=== PATIENT | female | born 1930 | race Hispanic/Latino ===

== ENCOUNTER 2016-10-26 13:27 | Inpatient (IN) | payer MEDICARE, OTHER ==
[2016-10-26 14:33] LABS: Hematocrit 31.1 % (30.3-42.9); Hemoglobin 10.3 gm/dl (10.1-14.3); Mean Corpuscular HGB Conc 33 % (30-34); Mean Corpuscular Hemoglobin 33 pg (28-32); Mean Corpuscular Volume 100 fl (79-97); Platelet Count 236 K/mm3 (140-440); Red Blood Count 3.11 M/mm3 (3.65-5.03); Red Cell Distribution Width 15.4 % (13.2-15.2); White Blood Count 5.3 K/mm3 (4.5-11.0)
[2016-10-26 14:36] LABS: BUN/Creatinine Ratio 25.55; Calcium 9.6 mg/dL (8.4-10.2)
[2016-10-26 14:37] LABS: Chloride 102.6 mmol/L (98-107)
[2016-10-26 14:58] LABS: Bacteria,Urine 2+ /HPF (Negative); Bilirubin,Urine NEG (Negative); Blood,Urine NEG (Negative); Ketones,Urine NEG (Negative); Leukocyte Esterase,Urine LG (Negative); Mucus,Urine FEW /HPF; Nitrite,Urine POS (Negative); Urobilinogen,Urine < 2.0 mg/dL (<2.0)
--- NOTE | 2016-10-26 15:15 | Cat Scan Report ---
FINAL REPORT PROCEDURE: CT HEAD/BRAIN WO CON TECHNIQUE: Computerized tomography of the head was performed without contrast material. HISTORY: syncope COMPARISON: Noncontrast head CT 06/19/2015 FINDINGS: Stable moderate involutional changes and deep white matter microvascular ischemic change is present as well as old bilateral basal ganglia lacunar infarcts. No CT evident acute infarction is present. There is no intra or extra-axial hemorrhage. There is no mass effect or shift of midline structures. The skull base and calvarium are intact. The partially visualized paranasal sinuses, mastoid air cells and middle ears are clear. IMPRESSION: No CT evident acute intracranial process. Stable involutional changes, small vessel disease and old bilateral basal ganglia lacunar infarcts.
[2016-10-26] MEDS ORDERED: ROCEPHIN/NS 1 GM/50 ML 1 GM/50 ML BAG IV ONE (15:16)
--- NOTE | 2016-10-26 15:31 | Emergency Department Report ---
HPI - General Chief Complaint: Syncope Time Seen by Provider: 10/26/16 14:02 - HPI HPI: Chief complaint: Syncope HPI: Patient is an 86-year-old female with a history of dementia, arthritis, CVA , diabetes, hypertension who was at the [facility] and had a syncopal episode. Patient was sitting in the chair and it is questionable whether she fell out onto the ground the daughter states she does not believe that happened. There is no obvious lesion where the patient was injured falling. Patient was brought in by EMS state they noted a first-degree heart block and heart rate in the 50s so gave her some atropine. Patient remained somewhat altered after arrival here but now according to her daughter she is back to her baseline. Patient herself cannot contribute to the history secondary to her dementia. Mode of arrival: EMS Source:family member Began: Occurred prior to admission Duration: Several minutes Context: She has had syncopal episodes in the past. Daughter does not wish her to have a pacemaker if it were to be needed. Quality: Unable to assess Severity: Unable to assess Improved with: Unable to assess Worsened with: Unable to assess Associated signs and symptoms: Unable to assess. Daughter states is far she knows she's had no nausea vomiting diarrhea fever cough or cold. ED Past Medical Hx - Past Medical History Previous Medical History?: Yes Hx Hypertension: Yes Hx CVA: Yes (2006) Hx Diabetes: Yes Hx Arthritis: Yes Hx Psychiatric Treatment: Yes (dementia) Hx Dementia: Yes (senile) Additional medical history: eosinophilic esophagitis, anemia, hemorrhoids, osteoporosis, stress incontinence, - Surgical History Additional Surgical History: Bladder; Cateract surgery s3, D&C, Vericose Veins - Social History Smoking Status: Former Smoker Substance Use Type: None Other Social History: Patient lives in assisted living - Medications Home Medications: Home Medications Medication Instructions Recorded Confirmed Last Taken Type sitaGLIPtin [Januvia] 50 mg PO DAILY #30 tablet 08/21/13 10/26/16 06/19/15 Rx Aspirin [Aspirin BABY CHEW TAB] 81 mg PO QHS 12/19/14 10/26/16 06/19/15 History Cholecalciferol (Vitamin D3) 5,000 unit PO QDAY 12/19/14 10/26/16 06/19/15 History [Vitamin D3] Memantine HCl [Namenda Xr] 28 mg PO DAILY 12/19/14 10/26/16 06/19/15 History Quetiapine Fumarate [SEROquel] 50 mg PO QHS 12/19/14 10/26/16 06/19/15 History Ranitidine HCl [Ranitidine 150mg 150 mg PO BID 12/19/14 10/26/16 06/19/15 History Cap] Rivastigmine [Exelon] 13.3 mg TD QHS 12/19/14 10/26/16 06/19/15 History Cranberry Extract [Theracran Hp 50 mg PO DAILY 02/24/15 10/26/16 06/19/15 History For Kids] Krill/Om-3/Dha/Epa/Phospho/Ast 1 each PO DAILY 02/24/15 10/26/16 06/19/15 History [Megared [place]-3 Krill Oil Sfgl] Multivitamin [Animal Shapes] 1 each PO DAILY 02/24/15 10/26/16 06/19/15 History Polyethylene Glycol 3350 [Miralax 17 gm PO QAM 02/24/15 10/26/16 06/19/15 History 3350] Vit A/Vit C/Vit E/Zinc/Copper 1 each PO BID 02/24/15 10/26/16 06/19/15 History [Preservision Areds Softgel] Sennosides [Senna Lax] 17.2 mg PO QHS 06/19/15 10/26/16 06/19/15 History Trimethoprim 100 mg PO QDAY 06/19/15 06/19/15 06/19/15 History ED Review of Systems ROS: Stated complaint: SYNCOPE Other details as noted in HPI Comment: Unobtainable due to pts medical conditions (secondary to dementia) Physical Exam - Physical Exam Vital Signs: Vital Signs 10/26/16 10/26/16 13:29 14:26 Temperature 97 F L Pulse Rate 64 Respiratory 16 Rate Blood Pressure 139/56 O2 Sat by Pulse 98 98 Oximetry Physical Exam: GENERAL: The patient is a well-developed well-nourished pleasant elderly white female in no acute distress. HEENT: Normocephalic. Atraumatic. Extraocular motions are intact. Patient has moist mucous membranes. NECK: Supple. No meningitic signs are noted. There is no adenopathy noted. CHEST/LUNGS: Clear to auscultation. There is no respiratory distress noted. HEART/CARDIOVASCULAR: Regular. There is no tachycardia. There is no gallop rub or murmur. ABDOMEN: Abdomen is soft, nontender. Patient has normal bowel sounds. There is no abdominal distention. SKIN: There is no rash. There is no edema. There is no diaphoresis. NEURO: The patient is awake, alert, and oriented. The patient is cooperative. The patient moves all extremities. Patient nods yes to every question and put to her MUSCULOSKELETAL: There is no tenderness or deformity. There is no limitation range of motion. There is no evidence of acute injury. ED Course Vital Signs 10/26/16 10/26/16 13:29 14:26 Temperature 97 F L Pulse Rate 64 Respiratory 16 Rate Blood Pressure 139/56 O2 Sat by Pulse 98 98 Oximetry - Reevaluation(s) Reevaluation #1: 10/26/16 Discussed with patient's daughter who states the patient is a DO NOT RESUSCITATE. Discussed with Dr. Dey who happens to be the patient's primary care doctor as well as the admitting hospitalist and he will admit her to the hospital. Patient was cultured and given 1 g of IV Rocephin for her urinary tract infection. ED Medical Decision Making - Lab Data Result diagrams: 10/26/16 14:04 10/26/16 14:04 Laboratory Tests 10/26/16 10/26/16 14:04 14:06 Troponin T < 0.010 Urine Nitrite Pos Ur Leukocyte Esterase Lg Urine WBC (Auto) 181.0 H Urine RBC (Auto) 13.0 U Epithel Cells (Auto) 6.0 Urine Bacteria (Auto) 2+ Urine WBC Clumps 2+ Hyaline Casts 24 - EKG Data -: EKG Interpreted by Nc EKG shows normal: sinus rhythm (with first-degree AV block60) - EKG Data When compared to previous EKG there are: previous EKG unavailable Interpretation: nonspecific ST-T wave oliva - Radiology Data Radiology results: report reviewed (CT head shows no acute process.) Critical care attestation.: If time is entered above; I have spent that time in minutes in the direct care of this critically ill patient, excluding procedure time. ED Disposition Clinical Impression: Urinary tract infection Qualifiers: Urinary tract infection type: acute pyelonephritis Qualified Code(s): N10 - Acute pyelonephritis Syncope Qualifiers: Syncope type: unspecified Qualified Code(s): R55 - Syncope and collapse Disposition: OP ADMITTED IP TO THIS HOSP Is pt being admited?: Yes Does the pt Need Aspirin: Yes Condition: Fair Time of Disposition: 15:32 (admit to the hospitalist)
[2016-10-26] MEDS ORDERED: ASPIRIN PO ONE (15:57)
[2016-10-26] MEDS ORDERED: ZOFRAN PO PRN (16:19)
[2016-10-26] MEDS ORDERED: DULCOLAX PR PRN (16:21)
[2016-10-26] MEDS ORDERED: NORCO 5/325 PO PRN (16:21)
[2016-10-26] MEDS ORDERED: TYLENOL PO PRN (16:21)
[2016-10-26] MEDS ORDERED: ZOFRAN IV PRN (16:21)
[2016-10-26] MEDS ORDERED: MILK OF MAGNESIA PO PRN (16:21)
--- NOTE | 2016-10-26 16:33 | History and Physical Report ---
History of Present Illness Date of examination: 10/26/16 Date of admission: 10/26/2016 Chief complaint: syncope History of present illness: Patient 86-year-old female with hypertension advance dementia diabetes presents after an episode of syncope. Patient was at the [facility] and is still not and had what appeared to be a syncopal episode. Patient did not hit her head was at the [facility]'s eat. Patient brought in after workup in ED was found to have first degree AV block. This was not new family had addressed this before. Patient has advanced dementia does not want any defibrillator or any invasive treatment at all. Patient etiology for syncope however was UTI and dehydration and we'll admit for urinary tract infection and dehydration to treat this. Past History Past Medical History: arrhythmia, diabetes, GERD, hypertension. denies: acute [place], atrial fib, anemia, arthritis, CAD, cancer, COPD, dialysis, DVT, ESRD, heart failure, hepatitis, HIV/AIDS, hyperthyroidism, hyperlipidemia, hypothyroidism, liver disease, PVD, pulmonary embolism, renal failure, seizures , stroke, sarcoidosis Past Surgical History: Other (bladder surgery) Social history: lives with family, AND/DNR-allow natural . denies: smoking , alcohol abuse, prescription drug abuse, IV drug use, full code Family history: no significant family history Medications and Allergies Allergies Allergy/AdvReac Type Severity Reaction Status Date / Time meperidine HCl [From Demerol] Allergy Rash Verified 08/19/13 09:33 nitrofurantoin Allergy Angioedema Verified 02/24/15 09:26 [From Macrobid] nitrofurantoin Allergy Angioedema Verified 02/24/15 09:26 macrocrystalline [From Macrobid] pineapple [Pineapple] Allergy Rash Verified 08/19/13 09:33 metformin AdvReac Diarrhea Verified 02/24/15 09:26 Home Medications Medication Instructions Recorded Confirmed Last Taken Type amLODIPine [Norvasc] 5 mg PO DAILY 08/19/13 06/19/15 06/19/15 History sitaGLIPtin [Januvia] 50 mg PO DAILY #30 tablet 08/21/13 06/19/15 06/19/15 Rx Aspirin [Aspirin BABY CHEW TAB] 81 mg PO QDAY 12/19/14 06/19/15 06/19/15 History Cholecalciferol (Vitamin D3) 5,000 unit PO QDAY 12/19/14 06/19/15 06/19/15 History [Vitamin D3] Lisinopril [Zestril] 2.5 mg PO QDAY 12/19/14 06/19/15 06/19/15 History Memantine HCl [Namenda Xr] 28 mg PO DAILY 12/19/14 06/19/15 06/19/15 History Quetiapine Fumarate [SEROquel] 25 mg PO BID 12/19/14 06/19/15 06/19/15 History Quetiapine Fumarate [SEROquel] 100 mg PO QHS 12/19/14 06/19/15 06/19/15 History Ranitidine HCl [Ranitidine 150mg 150 mg PO BID 12/19/14 06/19/15 06/19/15 History Cap] Rivastigmine [Exelon] 13.3 mg TD QHS 12/19/14 06/19/15 06/19/15 History Cranberry Extract [Theracran Hp 50 mg PO DAILY 02/24/15 06/19/15 06/19/15 History For Kids] Lenora Root [Lenora] 250 mg PO DAILY 02/24/15 06/19/15 06/19/15 History Krill/Om-3/Dha/Epa/Phospho/Ast 1 each PO DAILY 02/24/15 06/19/15 06/19/15 History [Megared [place]-3 Krill Oil Sfgl] Multivitamin [Animal Shapes] 1 each PO DAILY 02/24/15 06/19/15 06/19/15 History Polyethylene Glycol 3350 [Miralax 17 gm PO QAM 02/24/15 06/19/15 06/19/15 History 3350] Vit A/Vit C/Vit E/Zinc/Copper 1 each PO BID 02/24/15 06/19/15 06/19/15 History [Preservision Areds Softgel] Sennosides [Senna Lax] 17.2 mg PO QHS 06/19/15 06/19/15 06/19/15 History Trimethoprim 100 mg PO QDAY 06/19/15 06/19/15 06/19/15 History Ondansetron [Zofran TAB] 4 mg PO Q8HR PRN #10 tablet 06/20/15 Unknown Rx Active Meds: Active Medications Acetaminophen (Tylenol) 650 mg PO Q4H PRN PRN Reason: Pain MILD(1-3)/Fever >100.5/SCHMIDT Acetaminophen/Hydrocodone Bitart ([place] 5/325) 2 each PO Q6H PRN PRN Reason: Pain, Moderate (4-6) Amlodipine Besylate (Norvasc) 5 mg PO DAILY [facility] Aspirin (Baby Aspirin) 81 mg PO QDAY [facility] Bisacodyl (Dulcolax) 10 mg GA QDAY PRN PRN Reason: Constipation unrelieved by MOM Enoxaparin Sodium (Lovenox) 30 mg SUB-Q QDAY [facility] Ceftriaxone Sodium (Rocephin/Ns 1 Gm/50 Ml) 1 gm in 50 mls @ 100 mls/hr IV Q24HR [facility] PRN Reason: Protocol Sodium Chloride (Nacl 0.9% 1000 Ml) 1,000 mls @ 75 mls/hr IV DIRECT [facility] Magnesium Hydroxide (Milk Of Magnesia) 30 ml PO Q4H PRN PRN Reason: Constipation Miscellaneous Medication (Memantine Hcl [Namenda Xr]) 28 mg PO DAILY [facility] Ondansetron HCl (Zofran) 4 mg PO Q8H PRN PRN Reason: Vomiting Ondansetron HCl (Zofran) 4 mg IV Q8H PRN PRN Reason: N/V unrelieved by Reglan Polyethylene Glycol (Miralax 3350) 17 gm PO QAM [facility] Quetiapine Fumarate (Seroquel) 25 mg PO BID [facility] Quetiapine Fumarate (Seroquel) 100 mg PO QHS [facility] Rivastigmine (Exelon) 13.3 mg TD QHS [facility] Senna (Senokot) 17.2 mg PO QHS [facility] Review of Systems Constitutional: no weight loss, no weight gain, no fever, no chills, no sweats, no fatigue, no weakness, no malaise, no lethargy, no poor appetite Ears, nose, mouth and throat: vertigo, no ear pain, no ear discharge, no tinnitis, no decreased hearing, no nasal congestion, no dysphagia, no swelling in mouth, no swelling in throat, no neck lump Cardiovascular: palpitations, syncope, no chest pain, no orthopnea, no rapid/ irregular heart beat, no edema, no lightheadedness, no shortness of breath, no dyspnea on exertion, no paroxysmal nocturnal dyspnea, no claudication, no phlebitis, no high blood pressure, no leg edema, no decreased exercise tolerance Respiratory: no cough with sputum, no excessive sputum, no hemoptysis, no congestion, no wheezing, no pleurisy, no pain on inspiration, no snoring Gastrointestinal: no abdominal pain, no nausea, no vomiting, no diarrhea, no constipation, no change in bowel habits, no loss of appetite, no early satiety, no heartburn, no excessive gas, no jaundice, no dyspepsia/bloating, no early satiety, no lactose intolerance, no other Genitourinary Female: no dysuria, no urgency Menstruation: no premenarcheal, no ammenorrhea on BC, no period normal Rectal: no bleeding, no discharge Musculoskeletal: no shooting arm pain, no arm numbness/tingling, no low back pain, no leg numbness/tingling, no morning stiffness, no muscle weakness, no muscle cramps, no gait dysfunction, no frequent falls, no fractures, no arthritis Integumentary: no rash, no redness, no jaundice, no darkening of skin, no acne, no dryness, no foot/leg ulcers, no onychomycosis Neurological: other (confused mood disorder.), no transient paralysis, no weakness, no syncope, no vertigo, no migraines, no convulsions, no change in speech Psychiatric: anxiety, memory loss, change in sleep habits, sleep disturbances, insomnia, depression Endocrine: no cold intolerance, no polyphagia, no excessive thirst, no polyuria , no proptosis, no thyroid mass, no palpatations, no low blood sugars, no fatigue Hematologic/Lymphatic: no easy bruising, no lymphadenopathy, no other Allergic/Immunologic: no urticaria, no allergic rhinitis, no persistent infections, no gluten intolerance, no seasonal allergies Exam - Constitutional Vitals: Temp Pulse Resp BP Pulse Ox 97 F L 64 16 139/56 98 10/26/16 13:29 10/26/16 13:29 10/26/16 14:26 10/26/16 13:29 10/26/16 14:26 General appearance: Present: no acute distress - EENT Eyes: Present: PERRL, EOM intact ENT: hearing intact, clear oral mucosa, dentition normal - Neck Neck: Present: supple, normal ROM - Respiratory Respiratory effort: normal Respiratory: bilateral: CTA - Cardiovascular Heart Sounds: Present: S1 & S2. Absent: rub, click - Extremities Extremities: pulses symmetrical, No edema Peripheral Pulses: within normal limits - Abdominal General gastrointestinal: Present: soft, non-tender, non-distended, normal bowel sounds - Integumentary Integumentary: Present: clear, warm, dry - Musculoskeletal Musculoskeletal: gait normal, strength equal bilaterally - Psychiatric Psychiatric: other (poor judgment poor cognition) - Neurologic Neurologic: moves all extremities Results - Labs CBC & Chem 7: 10/26/16 14:04 10/26/16 14:04 Labs: Laboratory Last Values WBC 5.3 K/mm3 (4.5-11.0) 10/26/16 14:04 RBC 3.11 M/mm3 (3.65-5.03) L 10/26/16 14:04 Hgb 10.3 gm/dl (10.1-14.3) 10/26/16 14:04 Hct 31.1 % (30.3-42.9) 10/26/16 14:04 MCV 100 fl (79-97) H 10/26/16 14:04 MCH 33 pg (28-32) H 10/26/16 14:04 MCHC 33 % (30-34) 10/26/16 14:04 RDW 15.4 % (13.2-15.2) H 10/26/16 14:04 Plt Count 236 K/mm3 (140-440) 10/26/16 14:04 Sodium 136 mmol/L (137-145) L 10/26/16 14:04 Potassium 5.0 mmol/L (3.6-5.0) 10/26/16 14:04 Chloride 102.6 mmol/L (98-107) 10/26/16 14:04 Carbon Dioxide 20 mmol/L (22-30) L 10/26/16 14:04 Anion Gap 18 mmol/L 10/26/16 14:04 BUN 23 mg/dL (7-17) H 10/26/16 14:04 Creatinine 0.9 mg/dL (0.7-1.2) 10/26/16 14:04 Estimated GFR 59 ml/min 10/26/16 14:04 BUN/Creatinine Ratio 25.55 % 10/26/16 14:04 Glucose 129 mg/dL (65-100) H 10/26/16 14:04 Calcium 9.6 mg/dL (8.4-10.2) 10/26/16 14:04 Troponin T < 0.010 ng/mL (0.00-0.029) 10/26/16 14:04 Urine Color Yellow (Yellow) 10/26/16 14:06 Urine Turbidity Cloudy (Clear) 10/26/16 14:06 Urine pH 6.0 (5.0-7.0) 10/26/16 14:06 Ur Specific [place] 1.021 (1.003-1.030) 10/26/16 14:06 Urine Protein 100 mg/dl mg/dL (Negative) 10/26/16 14:06 Urine Glucose (UA) Neg mg/dL (Negative) 10/26/16 14:06 Urine Ketones Neg mg/dL (Negative) 10/26/16 14:06 Urine Blood Neg (Negative) 10/26/16 14:06 Urine Nitrite Pos (Negative) 10/26/16 14:06 Urine Bilirubin Neg (Negative) 10/26/16 14:06 Urine Urobilinogen < 2.0 mg/dL (<2.0) 10/26/16 14:06 Ur Leukocyte Esterase Lg (Negative) 10/26/16 14:06 Urine WBC (Auto) 181.0 /HPF (0.0-6.0) H 10/26/16 14:06 Urine RBC (Auto) 13.0 /HPF (0.0-6.0) 10/26/16 14:06 U Epithel Cells (Auto) 6.0 /HPF (0-13.0) 10/26/16 14:06 Urine Bacteria (Auto) 2+ /HPF (Negative) 10/26/16 14:06 Urine WBC Clumps 2+ /HPF 10/26/16 14:06 Hyaline Casts 24 /LPF 10/26/16 14:06 Urine Mucus Few /HPF 10/26/16 14:06 Assessment and Plan Advance Directives: Yes (agent DO NOT RESUSCITATE) VTE prophylaxis?: Chemical Plan of care discussed with patient/family: Yes - Patient Problems (1) Arrhythmia Current Visit: Yes Status: Acute Qualifiers: Arrhythmia type: A Atrial fibrillation type: A Atrial flutter type: A Premature depolarization type: P Plan to address problem: Issue with arrhythmia will not be worked up. Advanced dementia patient DO NOT RESUSCITATE family does not want syncope worked up or arrhythmia worked up. (2) Syncope Current Visit: Yes Status: Acute Qualifiers: Syncope type: unspecified Encounter type: E Qualified Code(s): R55 - Syncope and collapse Plan to address problem: Jensen no syncope workup. We'll treat underlying etiology of dehydration and UTI. (3) Complicated UTI (urinary tract infection) Current Visit: No Status: Acute Plan to address problem: Treat Rocephin IV complicated UTI. (4) Diabetes mellitus Current Visit: No Status: Acute Qualifiers: Diabetes mellitus type: D Diabetes mellitus complication status: D Diabetes mellitus complication detail: D Diabetic retinopathy severity: D Proliferative retinopathy type: P Diabetes mellitus macular edema: D Diabetes mellitus longterm insulin use: D Laterality: L Chronic kidney disease stage: C Plan to address problem: She was on oral and biotics we'll place patient on sliding-scale insulin hold metformin continue Januvia for now. Accordingly.
[2016-10-26] MEDS ORDERED: NACL 0.9% 1000 ML 1,000 ML IV SCH (17:00)
[2016-10-26] MEDS ORDERED: ASPIRIN ONE (18:56)
[2016-10-26] MEDS ORDERED: SENOKOT PO SCH (22:00)
[2016-10-26] MEDS ORDERED: EXELON TD SCH (22:00)
[2016-10-26] MEDS: COREG PO SCH (22:40)
[2016-10-27 06:47] LABS: BUN/Creatinine Ratio 21.81; Chloride 97.9 mmol/L (98-107); Potassium 3.9 mmol/L (3.6-5.0)
[2016-10-27] MEDS ORDERED: LOVENOX SUB-Q SCH (10:00)
[2016-10-27] MEDS ORDERED: NORVASC PO SCH (10:00)
[2016-10-27] MEDS ORDERED: BABY ASPIRIN PO SCH (10:00)
[2016-10-27] MEDS ORDERED: MIRALAX 3350 PO SCH (10:00)
[2016-10-27] MEDS ORDERED: NAMENDA XR PO SCH (10:00)
--- NOTE | 2016-10-27 10:16 | XRay Report ---
AP CHEST: HISTORY: Cough Patchy infiltrate at the left lung base and small left pleural effusion have developed since 06/19/15. Correlate for early pneumonia. The left upper lung and right lung are generally clear. Heart size is within normal limits. The bony structures are mildly demineralized but intact. IMPRESSION: Findings concerning for left lower lobe pneumonia and small left pleural effusion.
[2016-10-27] MEDS: COREG PO SCH (10:30)
[2016-10-27 11:43] VITALS: BP 121/56
[2016-10-27] MEDS ORDERED: ROCEPHIN/NS 1 GM/50 ML 1 GM/50 ML BAG IV SCH (15:00)
--- NOTE | 2016-10-29 11:28 | Discharge Summary ---
Providers - Providers Date of Admission: 10/26/16 17:52 Attending physician: KARIS MAGUIRE Primary care physician: REINSPECTOR Hospitalization Condition: Fair Hospital course: 86 YO Female admitted for UTI, Near syncope, and Arrythmia. Pt treated with IV abx, ivf, and supportive care. Pt and family declined further workup. Discussed patient prognosis with family. Family elects to have patient returned home to hospice care. Pt convalesced well during hospital course with improvement in symptoms. Pt seen and evaluated prior to discharge but no significant new physical exam findings since admission. Pt medically optimized. Pt discharged to home hospice under care of the biomedical field service engineer. Pt counseled regarding increased protein diet, balanced diet. 35 minutes dedicated to pt discharge and education. Disposition: DISCHARGED TO HOME OR SELFCARE - Discharge Diagnoses (1) Arrhythmia Status: Acute Qualifiers: Arrhythmia type: A Atrial fibrillation type: A Atrial flutter type: A Premature depolarization type: P (2) Complicated UTI (urinary tract infection) Status: Acute (3) DVT prophylaxis Status: Acute (4) Near syncope Status: Acute (5) Malnutrition of moderate degree ([place]: 60% to less than 75% of standard weight) Status: Acute Core Measure Documentation - Palliative Care Palliative Care/ Comfort Measures: Hospice Care - Core Measures Any of the following diagnoses?: none Exam - Constitutional Vitals: Temp Pulse Resp BP Pulse Ox 97.1 F L 78 18 121/56 98 10/27/16 11:35 10/27/16 11:35 10/27/16 11:35 10/27/16 11:35 10/26/16 21:04 General appearance: Present: cachectic - EENT Eyes: Present: PERRL ENT: hearing intact, clear oral mucosa - Neck Neck: Present: supple, normal ROM - Respiratory Respiratory effort: normal Respiratory: bilateral: CTA - Cardiovascular Heart Sounds: Present: S1 & S2. Absent: rub, click - Extremities Extremities: pulses symmetrical, No edema Peripheral Pulses: within normal limits - Abdominal General gastrointestinal: Present: soft, non-tender, non-distended, normal bowel sounds Female genitourinary: Present: normal - Integumentary Integumentary: Present: clear, warm, dry - Musculoskeletal Musculoskeletal: gait normal, strength equal bilaterally - Psychiatric Psychiatric: appropriate mood/affect, intact judgment & insight - Neurologic Neurologic: CNII-XII intact, moves all extremities Plan Follow up with: PRIMARY CARE,MD [Primary Care Provider] - 3-5 Days Prescriptions: Levofloxacin [Levaquin TAB] 500 mg PO QDAY #5 tablet
== END 2016-10-27 14:07 | disposition home or self-care (01) | DRG 690 ==
LOC: ED 13:27 → 3A 17:52
PROVIDERS: ADMIT Internal Medicine; ATTEND Internal Medicine
DX: N39.0 Urinary tract infection, site not specified (principal); E44.0 Moderate protein-calorie malnutrition; F03.90 Unspecified dementia, unspecified severity, without behavioral disturbance, psychotic disturbance, mood disturbance, and anxiety; E86.0 Dehydration; M19.90 Unspecified osteoarthritis, unspecified site; E11.9 Type 2 diabetes mellitus without complications; I10 Essential (primary) hypertension; I44.0 Atrioventricular block, first degree; M81.0 Age-related osteoporosis without current pathological fracture; N10 Acute pyelonephritis; R55 Syncope and collapse; K21.9 Gastro-esophageal reflux disease without esophagitis; Z88.8 Allergy status to other drugs, medicaments and biological substances; Z98.49 Cataract extraction status, unspecified eye; Z91.018 Allergy to other foods; Z87.891 Personal history of nicotine dependence; Z79.82 Long term (current) use of aspirin; Z86.73 Personal history of transient ischemic attack (TIA), and cerebral infarction without residual deficits; Z68.21 Body mass index [BMI] 21.0-21.9, adult
CPT/HCPCS: 36415; 70450; 71010; 80048; 81001; 82962; 84484; 85027; 87040; 87076; 87086; 87186; 93005; 93010; 96365; J0696; J1650; J7030